=== PATIENT | female | born 1995 | race African-American/Black ===

== ENCOUNTER 2021-12-27 02:22 | Emergency (ER) | payer SELFPAY ==
[~2021-12-27] VITALS: Ht 167.6 cm; Wt 64.0 kg
[2021-12-27] MEDS ORDERED: KETOROLAC 30MG/ML VIAL IV STA (03:30)
[2021-12-27] MEDS ORDERED: HYDROCODONE/ACETAMINOPHEN 5/325MG TABLET PO ONE (03:30)
[2021-12-27] MEDS ORDERED: TETANUS, DIPHTHERIA, PERTUSSIS VAC/PF 0.5ML (>10YR OLD) IM ONE (03:30)
[2021-12-27] MEDS ORDERED: SODIUM CHLORIDE 0.9% 1,000 ML IV ONE (03:30)
[2021-12-27 04:04] LABS: CHLORIDE 108 mEq/L (98-107)
[2021-12-27 04:05] LABS: BASOPHILS % 0.4 % (0.0-2.0); HEMOGLOBIN. 15.4 g/dL (12.0-16.0); LYMPHOCYTES % 11.6 % (20.0-50.0); MEAN CORPUSCULAR HEMOGLOBIN 31.8 pg (28.0-32.0); MEAN CORPUSCULAR VOLUME 94.8 fL (81.0-99.0); MEAN PLATELET VOLUME 7.5 fl (7.4-10.4); MONOCYTES % 4.7 % (2.0-8.0); NEUTROPHILS % 83.3 % (40.0-76.0); PLATELET 228 x1000/uL (130-400); RED BLOOD CELL COUNT 4.86 mill/uL (4.2-5.4); RED CELL DISTRIBUTION WIDTH 14.3 % (11.6-14.6)
[2021-12-27 05:10] LABS: CLARITY URINE CLEAR (CLEAR); COLOR URINE YELLOW (YELLOW); KETONES URINE 2+ (NEGATIVE); LEUKOCYTE ESTERASE URINE TRACE (NEGATIVE); NITRITE URINE NEGATIVE (NEGATIVE); OCCULT BLOOD URINE TRACE (NEGATIVE); PH URINE 5.5 (4.5-8.0); PROTEIN URINE 1+ (NEGATIVE); SPECIFIC GRAVITY URINE 1.027 (1.005-1.030)
[2021-12-27] MEDS ORDERED: IBUPROFEN 600MG TABLET PO ONE (05:45)
[2021-12-27] MEDS ORDERED: IOHEXOL-300 100 ML BOTTLE ONE (06:13)
[2021-12-27 06:16] VITALS: BP 105/53
== END 2021-12-27 06:21 | disposition home or self-care (01) ==
LOC: ER 02:22
DX: S06.0X0A Concussion without loss of consciousness, initial encounter (principal); S00.12XA Contusion of left eyelid and periocular area, initial encounter; S00.11XA Contusion of right eyelid and periocular area, initial encounter; Y07.03 Male partner, perpetrator of maltreatment and neglect; S00.83XA Contusion of other part of head, initial encounter; S00.511A Abrasion of lip, initial encounter; S30.810A Abrasion of lower back and pelvis, initial encounter; S20.229A Contusion of unspecified back wall of thorax, initial encounter; R07.89 Other chest pain; M54.89 Other dorsalgia; R10.9 Unspecified abdominal pain; Y04.2XXA Assault by strike against or bumped into by another person, initial encounter; Y93.89 Activity, other specified; Y92.018 Other place in single-family (private) house as the place of occurrence of the external cause
CPT/HCPCS: 36415; 70450; 70486; 71260; 72125; 74177; 80053; 81003; 81025; 83690; 85025; 86850; 86900; 86901; 90715; 96361; 96374; 99285; J1885; J7030; Q9967

== ENCOUNTER 2023-02-13 10:26 | Emergency (ER) | payer MEDICAID ==
[~2023-02-13] VITALS: Ht 160 cm; Wt 79.0 kg
[2023-02-13 10:35] VITALS: BP 132/91
[2023-02-13 11:13] LABS: CLARITY URINE CLEAR (CLEAR); COLOR URINE YELLOW (YELLOW); KETONES URINE 1+ (NEGATIVE); LEUKOCYTE ESTERASE URINE TRACE (NEGATIVE); NITRITE URINE NEGATIVE (NEGATIVE); OCCULT BLOOD URINE NEGATIVE (NEGATIVE); PROTEIN URINE NEGATIVE (NEGATIVE)
[2023-02-13 12:03] LABS: *AMPHETAMINES SCREEN URINE NEGATIVE (NEGATIVE); *BARBITURATES SCREEN URINE NEGATIVE (NEGATIVE); *BENZODIAZEPINES SCREEN URINE NEGATIVE (NEGATIVE); *COCAINE SCREEN URINE NEGATIVE (NEGATIVE); METHADONE URINE SCREEN NEGATIVE (NEGATIVE); OPIATES URINE SCREEN NEGATIVE (NEGATIVE); PHENCYCLIDINE URINE SCREEN NEGATIVE (NEGATIVE)
[2023-02-13 12:09] LABS: CANNABINOID URINE SCREEN PRESUMTIVE POSITIVE (NEGATIVE)
== END 2023-02-13 16:20 | disposition home or self-care (01) ==
LOC: ER 10:26
DX: R10.9 Unspecified abdominal pain (principal); Z30.431 Encounter for routine checking of intrauterine contraceptive device; Z79.899 Other long term (current) drug therapy
CPT/HCPCS: 74018; 80305; 81003; 81025; 99283; 99284

== ENCOUNTER 2024-11-14 21:34 | Emergency (ER) | payer MEDICAID, OTHER ==
[~2024-11-14] VITALS: Ht 167.6 cm; Wt 75.0 kg
[2024-11-14 21:51] VITALS: O2SAT 99
[2024-11-14 22:36] VITALS: BP 117/69; PULSE 68; RESP 18; TEMP 36.9; O2SAT 100
[2024-11-14] MEDS: KETOROLAC 15MG/ML VIAL IM ONE (22:45)
[2024-11-14] MEDS: DIPHENHYDRAMINE 12.5MG/5ML UDC PO ONE (22:45)
[2024-11-14] MEDS ORDERED: METOCLOPRAMIDE HCL 5MG TABLET PO ONE (22:45)
[2024-11-15] MEDS: KETOROLAC 15MG/ML VIAL IM NR (03:30)
[2024-11-15 04:18] LABS: CLARITY URINE CLEAR (CLEAR); COLOR URINE YELLOW (YELLOW); GLUCOSE URINE NEGATIVE (NEGATIVE); KETONES URINE TRACE (NEGATIVE); LEUKOCYTE ESTERASE URINE NEGATIVE (NEGATIVE); NITRITE URINE NEGATIVE (NEGATIVE); OCCULT BLOOD URINE NEGATIVE (NEGATIVE); PROTEIN URINE NEGATIVE (NEGATIVE); SPECIFIC GRAVITY URINE 1.032 (1.005-1.030); UROBILINOGEN URINE 0.2 E.U./dL (0.2-1.0)
[2024-11-15] MEDS: METOCLOPRAMIDE HCL 10MG TABLET PO NR (05:02)
[2024-11-15] MEDS: DIPHENHYDRAMINE 12.5MG/5ML UDC PO NR (05:02)
== END 2024-11-15 05:15 | disposition home or self-care (01) ==
LOC: ER 21:34
DX: S06.0X0A Concussion without loss of consciousness, initial encounter (principal); F10.90 Alcohol use, unspecified, uncomplicated; Z90.89 Acquired absence of other organs; X58.XXXA Exposure to other specified factors, initial encounter; Y93.89 Activity, other specified; Y92.89 Other specified places as the place of occurrence of the external cause; Y99.8 Other external cause status; Y90.9 Presence of alcohol in blood, level not specified
CPT/HCPCS: 99284; 70450; 81003; J1885; J8597; Q0163